=== PATIENT | female | born 1945 | race Two or more races ===

== ENCOUNTER 2019-01-02 07:23 | Outpatient (CLI) | payer OTHER | END 2019-01-02 07:27 | disposition home or self-care (01) | LOC: SONOGRAMA 07:23 | DX: E04.2 Nontoxic multinodular goiter (principal) ==

== ENCOUNTER 2022-05-25 07:51 | Outpatient (CLI) | payer OTHER | END 2022-05-25 07:53 | disposition home or self-care (01) | LOC: SONOGRAMA 07:51 | PROVIDERS: ATTEND Pathology Anatomic Pathology & Clinical Pathology | DX: D35.1 Benign neoplasm of parathyroid gland (principal) ==

== ENCOUNTER 2023-05-10 11:12 | Outpatient (CLI) | payer OTHER | END 2023-05-10 11:16 | disposition home or self-care (01) | LOC: SONOGRAMA 11:12 | PROVIDERS: ATTEND Pathology Anatomic Pathology & Clinical Pathology | DX: D44.0 Neoplasm of uncertain behavior of thyroid gland (principal); E04.2 Nontoxic multinodular goiter ==